=== PATIENT | female | born 1975 | race Hispanic/Latino ===

== ENCOUNTER 2019-05-16 20:05 | Emergency (ER) | payer SELFPAY ==
[~2019-05-16] VITALS: Ht 175.3 cm; Wt 95.3 kg
[2019-05-16] MEDS ORDERED: ACETAMINOPHEN 325 MG TAB PO PRN (21:30)
[2019-05-16] MEDS ORDERED: CLINDAMYCIN HCL 150 MG CAP PO SCH (21:30)
[2019-05-17 00:55] VITALS: BP 141/84
== END 2019-05-16 23:09 | disposition home or self-care (01) ==
LOC: ER 20:05
DX: K04.7 Periapical abscess without sinus (principal)
CPT/HCPCS: 99282